=== PATIENT | male | born 1985 | race Caucasian/White ===

== ENCOUNTER 2017-03-02 09:17 | Emergency (ER) | payer OTHER ==
[2017-03-02 10:18] LABS: Basophils % (Auto) 0.6 % (0.0-1.8); Eosinophils % (Auto) 3.5 % (0.0-4.3); Hematocrit 40.8 % (35.5-45.6); Hemoglobin 13.6 gm/dl (11.8-15.2); Mean Corpuscular HGB Conc 33 % (32-34); Mean Corpuscular Hemoglobin 31 pg (28-32); Mean Corpuscular Volume 92 fl (84-94); Platelet Count 289 K/mm3 (140-440); Red Blood Count 4.43 M/mm3 (3.65-5.03); Red Cell Distribution Width 12.5 % (13.2-15.2); White Blood Count 5.1 K/mm3 (4.5-11.0)
[2017-03-02] MEDS ORDERED: BABY ASPIRIN PO ONE (10:27)
[2017-03-02] MEDS ORDERED: DUONEB *Not for PRN Use IH ONE (10:27)
[2017-03-02 10:35] LABS: Alanine Aminotransferase 29 units/L (7-56); Albumin 4.4 g/dL (3.9-5); Albumin/Globulin Ratio 1.8 %; Alkaline Phosphatase 52 units/L (35-129); Anion Gap 16 mmol/L; BUN/Creatinine Ratio 12.22; Blood Urea Nitrogen 11 mg/dL (9-20); Calcium 9.2 mg/dL (8.4-10.2); Carbon Dioxide 27 mmol/L (22-30); Glucose 92 mg/dL (75-100); Sodium 139 mmol/L (137-145); Total Protein 6.8 g/dL (6.3-8.2)
--- NOTE | 2017-03-02 10:36 | Emergency Department Report ---
ED Chest Pain HPI - General Chief Complaint: Dyspnea/Respdistress Stated Complaint: TEGAN Time Seen by Provider: 03/02/17 09:58 Source: EMS Mode of arrival: Ambulatory Limitations: Other - History of Present Illness Initial Comments: 31-year-old -[place] male presents to the emergency department by EMS from home with the complaint of shortness of breath and chest pain that began upon waking this morning at 8:30 AM. He did not take anything for symptoms prior to presentation and it does not appear as if he received anything in route with EMS. He denies any fever, nausea, vomiting, back pain. No recent travel or sick contacts at home. He says that there is a history of a " enlarged heart." The triage notes mention possible history of ND and/or stent placement. He denies any history of stents but says that there may have been a diagnosis of ND back in 2011 through [facility]. He denies tobacco abuse or any illicit drug use. - Related Data Home Medications Medication Instructions Recorded Confirmed Last Taken No Known Home Medications [No 03/02/17 03/02/17 Unknown Reported Home Medications] Allergies Allergy/AdvReac Type Severity Reaction Status Date / Time No Known Allergies Allergy Unverified 03/02/17 09:43 Heart Score - HEART Score History: Slightly suspicious EKG: Normal Age: < 45 Risk factors: 1-2 risk factors Troponin: < normal limit HEART Score: 1 - Critical Actions Critical Actions: 0-3 pts:0.9-1.7%risk of adverse cardiac event.Candidate for discharge ED Review of Systems ROS: Stated complaint: TEGAN Other details as noted in HPI Comment: All other systems reviewed and negative Constitutional: denies: chills, fever Eyes: denies: eye pain, eye discharge, vision change ENT: denies: ear pain, throat pain Respiratory: shortness of breath. denies: cough Cardiovascular: chest pain. denies: palpitations, edema Gastrointestinal: denies: abdominal pain, nausea, diarrhea Genitourinary: denies: urgency, dysuria Musculoskeletal: denies: back pain, joint swelling, arthralgia Skin: denies: rash, lesions Neurological: denies: headache, weakness, paresthesias ED Past Medical Hx - Past Medical History Previous Medical History?: Yes Hx Heart Attack/AMI: Yes (2012 pt (stents??)) Hx Congestive Heart Failure: Yes (dx @ [facility] 2011) - Surgical History Past Surgical History?: No - Social History Smoking Status: Former Smoker Substance Use Type: Alcohol - Medications Home Medications: Home Medications Medication Instructions Recorded Confirmed Last Taken Type No Known Home Medications [No 03/02/17 03/02/17 Unknown History Reported Home Medications] ED Physical Exam - General Limitations: Other - Other Other exam information: GENERAL: The patient is well-developed well-nourished. HEENT: Normocephalic. Atraumatic. Extraocular motions are intact. Patient has moist mucous membranes. Pupils equal reactive to light bilaterally. NECK: Supple. Trachea is midline. CHEST/LUNGS: Clear to auscultation. There is no respiratory distress noted. HEART/CARDIOVASCULAR: Regular. There is no tachycardia. There is no gallop rub or murmur. ABDOMEN: Abdomen is soft, nontender. Patient has normal bowel sounds. There is no abdominal distention. SKIN: Skin is warm and dry. NEURO: The patient is awake, alert, and oriented. The patient is cooperative. The patient has no focal neurologic deficits. The patient has normal speech. Cranial nerves II through XII grossly intact. MUSCULOSKELETAL: There is no tenderness or deformity. There is no limitation range of motion. There is no evidence of acute injury. ED Course Vital Signs 03/02/17 03/02/17 03/02/17 09:43 11:45 12:10 Temperature 98.8 F Pulse Rate 89 Pulse Rate [ 84 95 H Anterior Bilateral Throughout] Respiratory 16 Rate Respiratory 18 16 Rate [Anterior Bilateral Throughout] Blood Pressure 124/82 O2 Sat by Pulse 99 Oximetry ELIJAH score - Elijah Score Age > 65: (0) No Aspirin use within the Past 7 Days: (0) No 3 or more CAD Risk Factors: (0) No 2 or more Angina events in past 24 hrs: (0) No Known CAD with more than 50% Stenosis: (0) No Elevated Cardiac Markers: (0) No ST Deviation Greater than 0.5mm: (0) No ELIJAH Score: 0 ED Medical Decision Making - Lab Data Result diagrams: 03/02/17 09:57 03/02/17 09:57 - EKG Data -: EKG Interpreted by [facility] EKG shows normal: sinus rhythm, axis, intervals, QRS complexes, ST-T waves Rate: normal - EKG Data When compared to previous EKG there are: previous EKG unavailable Interpretation: normal EKG - Radiology Data Radiology results: image reviewed interpreted by me: Chest x-ray did not show any acute process. Heart is normal shape and size. No effusions. No pneumothorax. No signs of pneumonia seen. - Medical Decision Making 31-year-old male presents to the emergency department with complaint of chest pain and some shortness of breath that began about 8:30 this morning. However it was later discovered that the patient had been drinking until close to 5 AM and had not gotten much sleep when he was woken up for work. The patient has 1- 2 risk factors with a questionable history of a previous ND and a family history of father having an ND at an early age. He was examined today with a physical exam, labs, imaging and EKG. EKG is normal without ST elevation ND, ischemia or dysrhythmia. Labs were unremarkable including negative troponins 2 and a negative d-dimer. Chest x-ray did not show any acute process. The patient was given IV fluid, aspirin, Toradol, thiamine and multivitamin. He was reevaluated multiple times over multiple hours and has been in the emergency department for close to 5 hours and is feeling improved. Vital signs of in stable throughout his ED course. The patient appears safe for discharge home at this time. He'll be given referrals for primary care and cardiology. He will return to the ER with any worsening of symptoms or any acute distress. - Differential Diagnosis costochondritis, ND, GERD, pneumonia, PE Critical Care Time: No Critical care attestation.: If time is entered above; I have spent that time in minutes in the direct care of this critically ill patient, excluding procedure time. ED Disposition Clinical Impression: Shortness of breath, Alcohol abuse Chest pain Qualifiers: Chest pain type: unspecified Qualified Code(s): R07.9 - Chest pain, unspecified Disposition: DC-01 TO HOME OR SELFCARE Is pt being admited?: No Condition: Stable Instructions: Chest Pain (ED), Abuse of Alcohol (ED) Additional Instructions: Please follow-up with a primary care physician in the next few days if possible. I have also given you a referral for a local elastic attacher overlock, Dr. emilie White, regarding your chest pain and your previous history. Return to the emergency department with any worsening of your symptoms or any acute distress. Referrals: PRIMARY CARE, [Primary Care Provider] - 3-5 Days DULCE-FARNAZ WHITE MD [Staff Physician] - 3-5 Days MIK BURTON MD [Staff Physician] - 3-5 Days [facility] [Outside] - 3-5 Days Time of Disposition: 14:13
--- NOTE | 2017-03-02 11:28 | XRay Report ---
AP CHEST :03/02/17 09:17:00 CLINICAL: Difficulty breathing. COMPARISON:None. FINDINGS: Normal heart and pulmonary vasculature. The lungs are normally expanded and clear. The bones and soft tissues are normal. IMPRESSION: Normal chest.
[2017-03-02] MEDS ORDERED: VITAMIN B-1 100 MG, FOLVITE 1 MG, INFUVITE 10 ML in NACL 0.9% 1000 ML 1,000 ML IV ONE (11:36)
[2017-03-02] MEDS ORDERED: TORADOL IV ONE (12:40)
[2017-03-02 12:54] LABS: Urine Drugs of Abuse Note Disclamer
[2017-03-02 13:11] LABS: Bilirubin,Urine NEG (Negative); Blood,Urine NEG (Negative); Ketones,Urine NEG (Negative); Leukocyte Esterase,Urine NEG (Negative); Mucus,Urine FEW /HPF; Nitrite,Urine NEG (Negative); Protein,Urine <15 mg/dL mg/dL (Negative); RBC,Urine < 1.0 /HPF (0.0-6.0); Urobilinogen,Urine < 2.0 mg/dL (<2.0); WBC,Urine < 1.0 /HPF (0.0-6.0)
[2017-03-02 15:59] VITALS: BP 127/86
== END 2017-03-02 14:15 | disposition home or self-care (01) ==
LOC: ED 09:17
DX: R07.9 Chest pain, unspecified (principal); R06.02 Shortness of breath; F10.10 Alcohol abuse, uncomplicated; I25.2 Old myocardial infarction; I50.9 Heart failure, unspecified
CPT/HCPCS: 36415; 71010; 80048; 80053; 80307; 81001; 83735; 83880; 84443; 84484; 85025; 85379; 93005; 93010; 94640; 96365; 96375; 99285; G0480; J1885; J3411; J7030; 80320

== ENCOUNTER 2021-01-22 11:16 | Emergency (ER) | payer OTHER ==
[2021-01-22 11:37] VITALS: BP 125/84
[2021-01-22] MEDS ORDERED: TETANUS,DIPH,PERTUSS(ACELL) VACCINE 0.5 ML SYRINGE IM ONE (12:15)
--- NOTE | 2021-01-22 12:44 | XRay Report ---
LEFT HAND 4 VIEWS INDICATION / CLINICAL INFORMATION: Laceration involving the fingers. COMPARISON: None available. FINDINGS: BONES / JOINT(S): No acute fracture or subluxation. No significant arthritis. SOFT TISSUES: I do not identify a radiopaque foreign body. ADDITIONAL FINDINGS: None. Signer Name: Hosea Mcneal MD Signed: 01/22/2021 12:40 PM Workstation Name: [id number]
--- NOTE | 2021-01-22 13:16 | Emergency Department Report ---
ED Laceration HPI - HPI Chief Complaint: Wound/Laceration Stated Complaint: TWO FINGER LAC ON LT HAND Time Seen by Provider: 01/22/21 11:41 Occurred When: Today Location: Upper Extremity Severity: mild Tetanus Status: Not up to Date Laceration Symptoms: Yes Pain, No Foreign Body Sensation, No Numbness, No Weakness Other History: This is a 35-year-old male nontoxic, well nourished in appearance, no acute signs of distress presents to the ED with c/o of left index finger laceration and left thumb laceration that occurred prior to arrival at work. Stated that he was working and cutting food with a knife which caused a laceration. Patient denies decreased sensation or range of motion. Patient stated bleeding is under control. Denies any numbness, tingling, fever, chills, nausea, vomiting, chest pain, shortness of breath, headache or stiff neck. Patient denies any allergies to significant past medical history. Patient is that he is not up-to-date with tetanus. ED Review of Systems ROS: Stated complaint: TWO FINGER LAC ON LT HAND Other details as noted in HPI Comment: All other systems reviewed and negative Constitutional: denies: chills, fever Eyes: denies: eye pain, eye discharge, vision change ENT: denies: ear pain, throat pain Respiratory: denies: cough, shortness of breath, wheezing Cardiovascular: denies: chest pain, palpitations Endocrine: no symptoms reported Gastrointestinal: denies: abdominal pain, nausea, diarrhea Genitourinary: denies: urgency, dysuria Musculoskeletal: denies: back pain, joint swelling, arthralgia Skin: denies: rash, lesions Neurological: denies: headache, weakness, paresthesias Psychiatric: denies: anxiety, depression Hematological/Lymphatic: denies: easy bleeding, easy bruising ED Past Medical Hx - Past Medical History Previous Medical History?: Yes Hx Heart Attack/AMI: Yes (2012 pt (stents??)) Hx Congestive Heart Failure: Yes (dx @ [facility] 2011) - Surgical History Past Surgical History?: Yes - Social History Smoking Status: Former Smoker Substance Use Type: Alcohol - Medications Home Medications: Home Medications Medication Instructions Recorded Confirmed Last Taken Type Sulfamethoxazole/Trimethoprim 1 each PO BID #14 tablet 01/22/21 Unknown Rx [Bactrim DS TAB] Laceration Physical Exam - Exam General: Vital signs noted. No distress. Alert and acting appropriately. Wound Length (cm): 2 (Left index finger superficial.0.5 centimeters superficial laceration to left thumb.) Laceration Location: Upper Extremity Laceration Exam: Yes Normal Distal CMS, No Foreign Body, No Exposed Tendon, Vessel, or Nerve, No Tendon Injury ED Course Vital Signs 01/22/21 11:35 Temperature 98 F Pulse Rate 68 Respiratory 18 Rate Blood Pressure 125/84 [Right] O2 Sat by Pulse 100 Oximetry - Reevaluation(s) Reevaluation #1: 01/22/21 13:13 Patient is speaking in full sentences with no signs of distress noted. - Laceration /Wound Repair Left Finger Wound Location: upper extremity (Left index and thumb finger) Wound Length (cm): 2 Wound's Depth, Shape: superficial Wound Explored: clean Irrigated w/ Saline (ccs): 40 Betadine Prep?: Yes Volume Anesthetic (ccs): 3 (2% lidocaine plain) Wound Repaired With: sutures, Dermabond Suture Size/Type: 5:0, nylon Number of Sutures: 6 Layer Closure?: No Sterile Dressing Applied?: Yes Progress: Under sterile field, I used Betadine to clean the area. I then used 40 mL of normal saline to flush the area. I then used 2% lidocaine plain and injected 3 mL to the left index finger. I then used a 5-0 nylon to suture the left index finger laceration. Number of stitches 6. I then used Dermabond for the left thumb. I then applied a sterile 4 x 4 with tape. Minimal bleeding noted but is under control. Patient tolerated procedure well with no signs of distress. ED Medical Decision Making - Radiology Data [address] [address] XRay Report Signed Patient: JULIANNA LAI MR #: [id number] : 1985 Acct:[id number] Age/Sex: 35 / M ADM Date: 01/22/21 Loc: ED Attending Dr: Ordering Physician: HEIKE BERGER NP Date of Service: 01/22/21 Procedure(s): XR hand 3+V LT Accession Number(s): [id number] cc: HEIKE BERGER NP Fluoro Time In Minutes: LEFT HAND 4 VIEWS INDICATION / CLINICAL INFORMATION: Laceration involving the fingers. COMPARISON: None available. FINDINGS: BONES / JOINT(S): No acute fracture or subluxation. No significant arthritis. SOFT TISSUES: I do not identify a radiopaque foreign body. ADDITIONAL FINDINGS: None. Signer Name: Hosea Mcneal MD Signed: 01/22/2021 12:40 PM Workstation Name: [id number] Transcribed By: RT Dictated By: Hosea Mcneal MD Electronically Authenticated By: Hosea Mcneal MD Signed Date/Time: 01/22/21 1240 DD/ 1239 TD/TT: - Medical Decision Making This is a 35-year-old male that presents with laceration. Patient is stable and was examined by me. The laceration suturing has been performed and has been performed and patient tolerated well. A sterile dressing has been applied. Patient was educated on proper wound care. Patient is discharged with Bactrim. Patient was instructed to return in 10 days for suture removal. Patient also received a tetanus booster in the ER. Patient was instructed to refer to Follow-up with a primary care doctor in 3-5 days or if symptoms worsen and continue return to emergency room as soon as possible. At time of discharge, the patient does not seem toxic or ill in appearance. No acute signs of distress noted. Patient agrees to discharge treatment plan of care. No further questions noted by the patient. Critical care attestation.: If time is entered above; I have spent that time in minutes in the direct care of this critically ill patient, excluding procedure time. ED Disposition Clinical Impression: Laceration of left index finger Qualifiers: Encounter type: initial encounter Damage to nail status: without damage Foreign body presence: without foreign body Qualified Code(s): S61.211A - Laceration without foreign body of left index finger without damage to nail, initial encounter Disposition: DC-01 TO HOME OR SELFCARE Is pt being admited?: No Does the pt Need Aspirin: No Condition: Stable Instructions: Laceration Care, Adult Additional Instructions: Follow-up with a primary care doctor in 3-5 days or if symptoms worsen and continue return to emergency room as soon as possible. Return in 10 days for suture removal. No physical activity that extremity until suture removal and reassessment of the laceration. Prescriptions: Sulfamethoxazole/Trimethoprim [Bactrim DS TAB] 1 each PO BID #14 tablet Referrals: PRIMARY CARE, [Primary Care Provider] - 3-5 Days FLORENTINO ROBLES MD [Staff Physician] - 3-5 Days Forms: Work/School Release Form(ED) Time of Disposition: 13:17
== END 2021-01-22 14:02 | disposition home or self-care (01) ==
LOC: ED 11:16
DX: S61.211A Laceration without foreign body of left index finger without damage to nail, initial encounter (principal); S61.012A Laceration without foreign body of left thumb without damage to nail, initial encounter; I50.9 Heart failure, unspecified; Z87.891 Personal history of nicotine dependence; Z79.899 Other long term (current) drug therapy; W26.0XXA Contact with knife, initial encounter; Y93.89 Activity, other specified; Y92.89 Other specified places as the place of occurrence of the external cause; Y99.8 Other external cause status
CPT/HCPCS: 90471; 90715; 99283